=== PATIENT | female | born 1970 | race Caucasian/White ===

== ENCOUNTER 2017-01-26 00:47 | Emergency (ER) | payer SELFPAY ==
[~2017-01-26] VITALS: Ht 160 cm; Wt 71.3 kg
[2017-01-26] MEDS ORDERED: ASPIRIN 81MG TABLET PO STA (02:53)
[2017-01-26] MEDS ORDERED: NITROGLYCERIN 0.4MG TABLET SL SL PRN (03:00)
[2017-01-26 03:18] LABS: BASOPHILS % 0.4 % (0.0-2.0); EOSINOPHILS % 0.5 % (0.0-5.0); HEMATOCRIT. 36.2 % (36.0-48.0); HEMOGLOBIN. 12.3 g/dL (12.0-16.0); LYMPHOCYTES % 14.5 % (20.0-50.0); MEAN CORPUSCULAR VOLUME 88.5 fL (81.0-99.0); MEAN PLATELET VOLUME 8.6 fl (7.4-10.4); MONOCYTES % 4.2 % (2.0-8.0); NEUTROPHILS % 80.4 % (40.0-76.0); PLATELET 192 x1000/uL (130-400); RED BLOOD CELL COUNT 4.09 mill/uL (4.2-5.4)
[2017-01-26 03:24] LABS: INR 1.1; PARTIAL THROMBOPLASTIN TIME 24.2 sec (23.4-31.0); PROTHROMBIN TIME 10.9 sec (9.4-11.6)
[2017-01-26 03:30] LABS: HCG SCREEN NEGATIVE
[2017-01-26 03:32] LABS: CARBON DIOXIDE 27 mEq/L (21-32); CHLORIDE 107 mEq/L (98-107); TROPONIN I < 0.02 ng/mL (0.00-0.04)
[2017-01-26 07:26] VITALS: BP 107/66
== END 2017-01-26 07:54 | disposition home or self-care (01) ==
LOC: ER 00:47 → CANBEDREQ 13:21
DX: R07.89 Other chest pain (principal); R10.13 Epigastric pain; R03.0 Elevated blood-pressure reading, without diagnosis of hypertension; R94.31 Abnormal electrocardiogram [ECG] [EKG]
CPT/HCPCS: 36415; 71010; 80053; 83690; 84484; 84703; 85025; 85610; 85730; 93005; 99285